=== PATIENT | female | born 2000 | race Hispanic/Latino ===

== ENCOUNTER 2025-10-08 12:35 | Emergency (ER) | payer OTHER ==
[~2025-10-08] VITALS: Ht 154.9 cm; Wt 59.0 kg
[2025-10-08] MEDS ORDERED: PRED20TA PO (16:01)
[2025-10-08] MEDS ORDERED: VENTAER INH (16:01)
[2025-10-08] MEDS: IPRATROPIUM 0.5 MG/ALBUTEROL 2.5 MG INH SOL UD 3 ML NEB ONE (16:04)
[2025-10-08 16:24] VITALS: BP 128/80; TEMP 99.1; O2SAT 99
== END 2025-10-08 16:27 | disposition home or self-care (01) ==
LOC: M ED 12:35
DX: J06.9 Acute upper respiratory infection, unspecified (principal); J30.89 Other allergic rhinitis